=== PATIENT | male | born 1980 | race African-American/Black ===

== ENCOUNTER 2021-01-27 07:50 | Outpatient (CLI) | payer OTHER, SELFPAY | END 2021-01-27 07:51 | disposition home or self-care (01) | LOC: ANHAUDIO 07:51 | PROVIDERS: Referring Provider Nurse Practitioner Family; Visit Provider Nurse Practitioner Family | DX: H90.3 Sensorineural hearing loss, bilateral (principal) | CPT/HCPCS: 92537; 92540; 92546; 92557; 92567 ==